=== PATIENT | male | born 1960 | race Caucasian/White ===

== ENCOUNTER 2017-12-17 13:57 | Emergency (ER) | payer OTHER, SELFPAY ==
[2017-12-17 14:14] VITALS: BP 155/100; PULSE 73; RESP 18; TEMP 36.8; O2SAT 97; BMI 28.7
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
[2017-12-17] MEDS: TET,DIPH,PERTUSS(ACELL),VAC/PF 0.5 ML SYRINGE IM (15:36)
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
[2017-12-17] MEDS: HYDROCODONE/ACET 5/325 TABLET 2 TAB PO (15:51)
--- NOTE | 2017-12-17 16:04 | PC.NURSE ---
Large telfa, bacitracin and kerlix to bilateral arms
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
[2017-12-17 16:32] VITALS: BP 184/80; PULSE 71; RESP 20; O2SAT 99
== END 2017-12-17 16:33 | disposition home or self-care (01) ==
PROVIDERS: Emergency Provider Emergency Medicine
DX: T22.10XA Burn of first degree of shoulder and upper limb, except wrist and hand, unspecified site, initial encounter (principal); T20.10XA Burn of first degree of head, face, and neck, unspecified site, initial encounter; X11.8XXA Contact with other hot tap-water, initial encounter; Y99.0 Civilian activity done for income or pay
CPT/HCPCS: 16020; 90471; 99283; 90715

== ENCOUNTER → 2017-12-20 10:23 | Outpatient (CLI) | payer OTHER, SELFPAY | PROVIDERS: Visit Provider Family Medicine | DX: T22.212A Burn of second degree of left forearm, initial encounter (principal) | CPT/HCPCS: 16020; 99204; 99212 ==

== ENCOUNTER → 2017-12-23 13:47 | Outpatient (CLI) | payer OTHER, SELFPAY | PROVIDERS: Visit Provider Family Medicine | DX: T22.212A Burn of second degree of left forearm, initial encounter (principal) | CPT/HCPCS: 16020 ==

== ENCOUNTER → 2017-12-27 11:13 | Outpatient (CLI) | payer OTHER, SELFPAY | PROVIDERS: Visit Provider Family Medicine | DX: T22.212A Burn of second degree of left forearm, initial encounter (principal) | CPT/HCPCS: 16020 ==

== ENCOUNTER → 2018-01-05 08:38 | Outpatient (CLI) | payer OTHER, SELFPAY | PROVIDERS: Visit Provider Family Medicine | DX: T22.212A Burn of second degree of left forearm, initial encounter (principal) | CPT/HCPCS: 99212 ==

== ENCOUNTER 2022-03-26 08:41 | Emergency (ER) | payer OTHER, SELFPAY ==
[2022-03-26] VITALS (47 sets, daily range): BP systolic 151–241; BP diastolic 63–113; PULSE 58–96; RESP 10–28; TEMP 36.8; O2SAT 97–100; BMI 29.0
--- NOTE | 2022-03-26 08:51 | DI.CT.S_ITS ---
PROCEDURE: CT ANGIO HEAD AND NECK INDICATIONS: dizzy HTN TECHNIQUE: Pre-contrast 4.5 mm thick sections acquired from the foramen magnum to the vertex. After the administration of intravenous contrast, 1 mm thick sections acquired from the aortic arch through the [place]. Post-contrast 4.5 mm thick sections then re-acquired from the foramen magnum to the vertex. 3-dimensional [id number] (MIP) and/or volume rendering reformats were acquired of the central intracranial vasculature and neck separately. For radiation dose reduction, the following was used: automated exposure control, adjustment of mA and/or kV according to patient size. COMPARISON: None. FINDINGS: Image quality: Excellent. BRAIN: CSF spaces: Ventricles are normal in size and shape. Basal cisterns are patent. No extra-axial fluid collections. Brain: No midline shift. No intracranial bleeds or masses. Alvarado-white matter interface appears intact. No area of abnormal intracranial enhancement is seen. Skull and face: Calvarium and facial bones appear intact, without suspicious lesions. Orbits appear normal. Sinuses: Mucosal thickening in right maxillary sinus is seen. Bilateral mastoids are well aerated. HEAD CT ANGIOGRAPHY: Anterior circulation: Intracranial internal carotid arteries are normal in size and flow. The flow within the paired anterior cerebral arteries is normal and symmetric. The flow within the middle cerebral arteries is normal and symmetric. The anterior communicating artery is seen. No aneurysms are seen. Posterior circulation: Visualized portions of the vertebral arteries demonstrate normal caliber, and join to form a normal appearing basilar artery. Flow within the posterior cerebral arteries is normal and symmetric. No aneurysms are seen. NECK CT ANGIOGRAPHY: Carotid system: Atherosclerotic calcifications are seen throughout aortic arch with left proximal subclavian artery stent in place. The origins of the common carotid arteries appear patent. The common carotid arteries demonstrate normal caliber and courses. Moderate amount of atherosclerotic calcifications are noted involving bilateral carotid bulbs and origins of bilateral internal carotid arteries with less than 50 percent stenosis involving proximal right internal carotid artery and 60-70 percent stenosis involving proximal left internal carotid artery. No hemodynamically significant stenosis is seen in more distal bilateral internal carotid arteries. Posterior circulation: Right vertebral artery origin is patent. Greater than 50 percent stenosis involving origin of left vertebral artery is seen The more superior extracranial portions of both vertebral arteries also demonstrate normal courses and calibers. They join to form a normal appearing basilar artery. Soft tissues: Visualized neck soft tissues demonstrate no suspicious abnormalities. Bones: No suspicious bony lesions. Visualized cervical spine appears normally aligned. IMPRESSION: 1. No CT evidence of acute intracranial abnormalities. No area of abnormal enhancement. 2. Right maxillary sinusitis. 3. No hemodynamically significant stenosis or aneurysm is seen in intracranial circulation. 4. Significant atherosclerotic disease involving aortic arch. Left proximal subclavian artery stent in place. Moderate amount of atherosclerotic disease involving bilateral carotid bulbs and proximal bilateral internal carotid arteries causing less than 50 percent stenosis in proximal right internal carotid artery and 60-70 percent stenosis involving proximal left internal carotid artery. 5. Greater than 50 percent stenosis involving origin of left vertebral artery. More distal bilateral vertebral arteries show no hemodynamically significant stenosis. Any quantitative measurements of stenosis were performed using NASCET criteria. Dictated by: Obed Mcleod M.D. on 03/26/2022 at 9:34 Approved by: Obed Mcleod M.D. on 03/26/2022 at 9:44
[2022-03-26 09:01] LABS: Add Manual Diff / Slide Review NO; Basophils Absolute Auto 0 /uL (0-100); Basophils Percent Auto 0.7 % (0-2); Eosinophils Absolute Auto 0 /uL (0-450); Eosinophils Percent Auto 0.9 % (2-4); Hematocrit 44.5 % (41-53); Hemoglobin 15.6 g/dL (13.5-17.5); Lymphocytes Absolute Auto 2000 /uL (1100-4500); Lymphocytes Percent Auto 35.8 % (25-40); Mean Corpuscular HGB Conc 35.1 % (30-36); Mean Corpuscular Hemoglobin 34.9 PG (26-34); Mean Corpuscular Volume 99.2 fL (80-100); Monocytes Absolute Auto 500 /uL (0-900); Monocytes Percent Auto 9.1 % (3-14); Neutrophils Absolute Auto 2900 /uL (1500-7000); Neutrophils Percent Auto 53.5 % (50-75); Platelet Count 161 X10^3/uL (150-400); Red Blood Cell Count 4.49 X10^6/uL (4.5-5.9); Red Cell Distribution Width 13.2 % (11.6-14.8); White Blood Cell Count 5.5 X10^3/uL (4.5-11.0)
--- NOTE | 2022-03-26 09:07 | ED_ITS ---
HPI - Dizziness General Chief Complaint: Hypertension Stated Complaint: thinks he's having a stoke Time Seen by Provider: 03/26/22 08:50 Source: patient Mode of arrival: Ambulatory History of Present Illness HPI Narrative: Patient is a 61-year-old male history of hypertension peripheral vascular disease with stent in the left arm, tobacco abuse and alcohol abuse presenting today with ongoing dizziness. He reports dizziness off and on for up to 2 years however slightly worse today. Difficult to say what makes it better or worse. It does not seem to be positional. He feels like he is in a fish bowl. He is no numbness tingling or weakness no severe headache no nausea vomiting he is ambulatory. 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 He has been taking aspirin and high cholesterol medication however not taking anything for his blood pressure. He is noted to be extremely hypertensive here in the ED. he denies any fever chills or abdominal pain. Related Data Previous Rx's Medication Instructions Recorded hydrocodone 5 mg-acetaminophen 325 1 tab PO Q4-6H PRN pain #14 tabs 12/17/17 mg tablet atorvastatin 80 mg tablet 80 mg PO BEDTIME #30 tabs 03/26/22 hydrochlorothiazide 25 mg tablet 25 mg PO DAILY #30 tabs 03/26/22 Allergies Allergy/AdvReac Type Severity Reaction Status Date / Time No Known Drug Allergies Allergy Verified 12/17/17 15:23 Review of Systems Review of Systems ROS Unobtainable: All systems reviewed & are unremarkable except as noted in HPI and below Patient History Social History Smoking Status: Current every day smoker Smoking Status: Current every day smoker alcohol intake frequency: 0-2 drinks per day Substance Use Type: does not use Exam Initial Vital Signs Initial Vital Signs: Vital Signs Temperature 98.3 F 03/26/22 08:45 Pulse Rate 95 H 03/26/22 08:45 Respiratory Rate 18 03/26/22 08:45 Blood Pressure 241/113 H 03/26/22 08:45 Pulse Oximetry 99 03/26/22 08:45 Oxygen Delivery Method 03/26/22 08:45 GENERAL: Alert 61-year-old male HEENT: Head atraumatic,EOMI, pupils reactive, face symmetric, moist mucous membranes CARDIOVASCULAR: Regular rate and rhythm without murmurs, rubs or gallops. RESPIRATORY: Breath sounds equal bilaterally, no wheezes rales or rhonchi. ABDOMEN: Soft, nontender. Normoactive bowel sounds all 4 quadrants. No guarding or rebound. EXTREMITIES: Normal range of motion, no clubbing or edema. Neurovascularly intact NEUROLOGICAL: Alert and oriented x4.Normal gait and speech. Cranial nerves II through XII grossly intact. Good dpfgyp-lo-pdak, good rybo-ta-icqj, strength equal bilaterally, no dysarthria or aphasia, sensation in tact to soft touch bilaterally, no visual changes, no facial droop SKIN: Warm, dry, no laceration, no petechiae, no rashes or lesions. Scores NIH Stroke Scale Level of Conciousness: Alert, keenly responsive Ask month/age: Answers both questions correctly. Open/close eyes, close hand: Performs both tasks correctly Best gaze horizontal: Normal Visual call: No visual loss Facial palsy: Normal symetrical movement Left arm drift: No drift for full 10 sec Right arm drift: No drift for full 10 sec Left leg drift: No drift for full 5 sec Right leg drift: No drift for full 5 sec Limb ataxia: Absent Sensory on face/arms/legs: Normal, no sensory loss Best language: No aphasia, normal Dysarthria: Normal Extinction or inattention: No abnormality Total NIH Stroke scale score: 0 Course Orders Ordered: ED Orders 03/26/22 11:11 MR head/brain wo con Stat 03/26/22 19:17 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 Vital Signs Vital signs: Vital Signs - 8 hr 03/26/22 11:45 03/26/22 11:45 03/26/22 12:00 Pulse Rate 59 L Respiratory Rate 21 Blood Pressure 164/72 H 157/71 H Pulse Oximetry 100 03/26/22 12:00 03/26/22 12:15 03/26/22 12:15 Pulse Rate 58 L 58 L Respiratory Rate 21 18 Blood Pressure 151/67 H Pulse Oximetry 100 100 03/26/22 12:30 03/26/22 12:31 03/26/22 12:31 Pulse Rate 59 L 59 L Respiratory Rate 21 20 Blood Pressure 170/74 H Pulse Oximetry 99 100 03/26/22 12:45 03/26/22 12:45 03/26/22 13:00 Pulse Rate 59 L Respiratory Rate 25 H Blood Pressure 161/73 H 162/72 H Pulse Oximetry 99 03/26/22 13:00 03/26/22 13:15 03/26/22 13:15 Pulse Rate 61 60 Respiratory Rate 20 21 Blood Pressure 155/64 H Pulse Oximetry 98 99 03/26/22 13:30 03/26/22 13:31 03/26/22 13:31 Pulse Rate 60 64 Respiratory Rate 10 L 21 Blood Pressure 162/71 H Pulse Oximetry 99 98 03/26/22 13:45 03/26/22 13:45 03/26/22 14:00 Pulse Rate 64 Respiratory Rate 20 Blood Pressure 168/72 H 185/77 H Pulse Oximetry 99 03/26/22 14:00 03/26/22 14:38 03/26/22 14:45 Pulse Rate 61 80 65 Respiratory Rate 13 15 Blood Pressure Pulse Oximetry 98 99 98 03/26/22 15:01 03/26/22 15:01 03/26/22 15:15 Pulse Rate 72 Respiratory Rate 21 Blood Pressure 192/88 H 173/77 H Pulse Oximetry 98 03/26/22 15:15 03/26/22 15:30 03/26/22 15:30 Pulse Rate 69 70 Respiratory Rate 28 H 22 Blood Pressure 168/79 H Pulse Oximetry 98 100 03/26/22 15:45 03/26/22 15:45 03/26/22 16:00 Pulse Rate 61 Respiratory Rate Blood Pressure 173/81 H 184/85 H Pulse Oximetry 99 03/26/22 16:00 03/26/22 16:15 03/26/22 16:15 Pulse Rate 62 96 H Respiratory Rate Blood Pressure 207/113 H Pulse Oximetry 99 03/26/22 16:30 03/26/22 16:30 03/26/22 16:45 Pulse Rate 64 Respiratory Rate 20 Blood Pressure 181/86 H 159/84 H Pulse Oximetry 03/26/22 16:45 03/26/22 17:00 03/26/22 17:00 Pulse Rate 66 65 Respiratory Rate 17 18 Blood Pressure 153/69 H Pulse Oximetry 03/26/22 17:15 03/26/22 17:15 03/26/22 17:30 Pulse Rate 82 Respiratory Rate 11 L Blood Pressure 156/72 H 151/74 H Pulse Oximetry 03/26/22 17:30 03/26/22 17:45 03/26/22 17:45 Pulse Rate 74 75 Respiratory Rate 22 17 Blood Pressure 153/63 H Pulse Oximetry 03/26/22 18:00 03/26/22 18:00 03/26/22 18:15 Pulse Rate 73 Respiratory Rate 27 H Blood Pressure 157/69 H 151/69 H Pulse Oximetry 03/26/22 18:15 03/26/22 19:00 03/26/22 19:15 Pulse Rate 78 73 77 Respiratory Rate 21 24 Blood Pressure Pulse Oximetry MDM - Dizziness Lab Data 03/26/22 08:49 03/26/22 08:49 Labs: Lab Results 03/26/22 03/26/22 03/26/22 Range/Units 08:49 08:49 08:49 WBC 5.5 (4.5-11.0) X10^3/uL RBC 4.49 L (4.5-5.9) X10^6/uL Hgb 15.6 (13.5-17.5) g/dL Hct 44.5 (41-53) % MCV 99.2 (80-100) fL MCH 34.9 H (26-34) PG MCHC 35.1 (30-36) % RDW 13.2 (11.6-14.8) % Plt Count 161 (150-400) X10^3/uL Neut % (Auto) 53.5 (50-75) % Lymph % (Auto) 35.8 (25-40) % [place] % (Auto) 9.1 (3-14) % Eos % (Auto) 0.9 L (2-4) % Baso % (Auto) 0.7 (0-2) % Neut # (Auto) 2900 (7538-4332) /uL Lymph # (Auto) 2000 (9934-4611) /uL [place] # (Auto) 500 (0-900) /uL Eos # (Auto) 0 (0-450) /uL Baso # (Auto) 0 (0-100) /uL PT 11.3 (10.1-12.7) SECONDS INR 1.0 (0.9-1.3) APTT 28 (26-36) SECONDS Sodium 131 L (137-145) mmol/L Potassium 5.6 H (3.4-5.1) mmol/L Chloride 95 L (98-107) mmol/L Carbon Dioxide 23 (22-32) mmol/L BUN 14 (9-20) mg/dL Creatinine 0.59 L (0.66-1.25) mg/dL Estimated GFR > 60 (>60) mL/min BUN/Creatinine Ratio 23.7 H (6-22) Glucose 296 H (80-110) mg/dL Hemoglobin A1c (4.0-6.0) % Calcium 9.4 (8.4-10.2) mg/dL Total Bilirubin 1.5 H (0.2-1.3) mg/dL AST 53 (17-59) IU/L ALT 30 (<50) IU/L Alkaline Phosphatase 81 (38-126) U/L Total Creatine Kinase 129 (55-170) U/L CK-MB (CK-2) 2.01 (<2.37) ng/mL CK-MB (CK-2) Rel Index 1.6 (1.5-5.0) % Troponin I 0.013 (0.01-0.034) ng/mL Total Protein 9.3 H (6.3-8.2) g/dL Albumin 5.0 (3.5-5.0) g/dL Globulin 4.3 H (1.7-4.1) g/dL Albumin/Globulin Ratio 1.2 (1.0-2.8) Urine Color Urine Appearance Urine pH (4.5-8.0) Ur Specific [place] (1.000-1.035) Urine Protein (Negative) Urine Glucose (UA) (Negative) g/dL Urine Ketones (NEGATIVE) Urine Occult Blood (Negative) Urine Nitrate (Negative) Urine Bilirubin (NEGATIVE) Urine Urobilinogen (0.2) E.U./dL Ur Leukocyte Esterase (NEGATIVE) Urine RBC (0-5/HPF) Urine WBC (0-5/HPF) Urine Bacteria (None) Ur Culture Indicated? Micro UA Comment U Opiates 300ng/mL cut (Negative) Ur Oxycodone Screen (Negative) Urine Methadone Screen (Negative) Ur Barbiturates Screen (Negative) U Tricyclic Antidepress (Negative) Ur Phencyclidine Scrn (Negative) Ur Amphetamines Screen (Negative) U Methamphetamines Scrn (Negative) Ur MDMA Scrn (Ecstasy) (Negative) U Benzodiazepines Scrn (Negative) Urine Cocaine Screen (Negative) U Marijuana (THC) Screen (Negative) Ethyl Alcohol < 10 ( - 10) mg/dL SARS-CoV-2 (PCR) (Negative) 03/26/22 03/26/22 03/26/22 Range/Units 08:49 08:58 09:14 WBC (4.5-11.0) X10^3/uL RBC (4.5-5.9) X10^6/uL Hgb (13.5-17.5) g/dL Hct (41-53) % MCV (80-100) fL MCH (26-34) PG MCHC (30-36) % RDW (11.6-14.8) % Plt Count (150-400) X10^3/uL Neut % (Auto) (50-75) % Lymph % (Auto) (25-40) % [place] % (Auto) (3-14) % Eos % (Auto) (2-4) % Baso % (Auto) (0-2) % Neut # (Auto) (3295-5573) /uL Lymph # (Auto) (7950-8410) /uL [place] # (Auto) (0-900) /uL Eos # (Auto) (0-450) /uL Baso # (Auto) (0-100) /uL PT (10.1-12.7) SECONDS INR (0.9-1.3) APTT (26-36) SECONDS Sodium (137-145) mmol/L Potassium (3.4-5.1) mmol/L Chloride (98-107) mmol/L Carbon Dioxide (22-32) mmol/L BUN (9-20) mg/dL Creatinine (0.66-1.25) mg/dL Estimated GFR (>60) mL/min BUN/Creatinine Ratio (6-22) Glucose (80-110) mg/dL Hemoglobin A1c 11.0 H (4.0-6.0) % Calcium (8.4-10.2) mg/dL Total Bilirubin (0.2-1.3) mg/dL AST (17-59) IU/L ALT (<50) IU/L Alkaline Phosphatase (38-126) U/L Total Creatine Kinase (55-170) U/L CK-MB (CK-2) (<2.37) ng/mL CK-MB (CK-2) Rel Index (1.5-5.0) % Troponin I (0.01-0.034) ng/mL Total Protein (6.3-8.2) g/dL Albumin (3.5-5.0) g/dL Globulin (1.7-4.1) g/dL Albumin/Globulin Ratio (1.0-2.8) Urine Color Urine Appearance Urine pH (4.5-8.0) Ur Specific [place] (1.000-1.035) Urine Protein (Negative) Urine Glucose (UA) (Negative) g/dL Urine Ketones (NEGATIVE) Urine Occult Blood (Negative) Urine Nitrate (Negative) Urine Bilirubin (NEGATIVE) Urine Urobilinogen (0.2) E.U./dL Ur Leukocyte Esterase (NEGATIVE) Urine RBC (0-5/HPF) Urine WBC (0-5/HPF) Urine Bacteria (None) Ur Culture Indicated? Micro UA Comment U Opiates 300ng/mL cut Negative (Negative) Ur Oxycodone Screen Negative (Negative) Urine Methadone Screen Negative (Negative) Ur Barbiturates Screen Negative (Negative) U Tricyclic Antidepress Negative (Negative) Ur Phencyclidine Scrn Negative (Negative) Ur Amphetamines Screen Negative (Negative) U Methamphetamines Scrn Negative (Negative) Ur MDMA Scrn (Ecstasy) Negative (Negative) U Benzodiazepines Scrn Negative (Negative) Urine Cocaine Screen Negative (Negative) U Marijuana (THC) Screen Negative (Negative) Ethyl Alcohol ( - 10) mg/dL SARS-CoV-2 (PCR) Negative (Negative) 03/26/22 03/26/22 Range/Units 09:14 10:05 WBC (4.5-11.0) X10^3/uL RBC (4.5-5.9) X10^6/uL Hgb (13.5-17.5) g/dL Hct (41-53) % MCV (80-100) fL MCH (26-34) PG MCHC (30-36) % RDW (11.6-14.8) % Plt Count (150-400) X10^3/uL Neut % (Auto) (50-75) % Lymph % (Auto) (25-40) % [place] % (Auto) (3-14) % Eos % (Auto) (2-4) % Baso % (Auto) (0-2) % Neut # (Auto) (0908-9626) /uL Lymph # (Auto) (8259-8708) /uL [place] # (Auto) (0-900) /uL Eos # (Auto) (0-450) /uL Baso # (Auto) (0-100) /uL PT (10.1-12.7) SECONDS INR (0.9-1.3) APTT (26-36) SECONDS Sodium (137-145) mmol/L Potassium 4.6 (3.4-5.1) mmol/L Chloride (98-107) mmol/L Carbon Dioxide (22-32) mmol/L BUN (9-20) mg/dL Creatinine (0.66-1.25) mg/dL Estimated GFR (>60) mL/min BUN/Creatinine Ratio (6-22) Glucose (80-110) mg/dL Hemoglobin A1c (4.0-6.0) % Calcium (8.4-10.2) mg/dL Total Bilirubin (0.2-1.3) mg/dL AST (17-59) IU/L ALT (<50) IU/L Alkaline Phosphatase (38-126) U/L Total Creatine Kinase (55-170) U/L CK-MB (CK-2) (<2.37) ng/mL CK-MB (CK-2) Rel Index (1.5-5.0) % Troponin I (0.01-0.034) ng/mL Total Protein (6.3-8.2) g/dL Albumin (3.5-5.0) g/dL Globulin (1.7-4.1) g/dL Albumin/Globulin Ratio (1.0-2.8) Urine Color Yellow Urine Appearance Clear Urine pH 5.0 (4.5-8.0) Ur Specific [place] <=1.005 (1.000-1.035) Urine Protein Negative (Negative) Urine Glucose (UA) 3+ H (Negative) g/dL Urine Ketones Negative (NEGATIVE) Urine Occult Blood Negative (Negative) Urine Nitrate Negative (Negative) Urine Bilirubin Negative (NEGATIVE) Urine Urobilinogen 0.2 (0.2) E.U./dL Ur Leukocyte Esterase Negative (NEGATIVE) Urine RBC None seen (0-5/HPF) Urine WBC None seen (0-5/HPF) Urine Bacteria None seen (None) Ur Culture Indicated? Cult not indicated Micro UA Comment Microscopic normal U Opiates 300ng/mL cut (Negative) Ur Oxycodone Screen (Negative) Urine Methadone Screen (Negative) Ur Barbiturates Screen (Negative) U Tricyclic Antidepress (Negative) Ur Phencyclidine Scrn (Negative) Ur Amphetamines Screen (Negative) U Methamphetamines Scrn (Negative) Ur MDMA Scrn (Ecstasy) (Negative) U Benzodiazepines Scrn (Negative) Urine Cocaine Screen (Negative) U Marijuana (THC) Screen (Negative) Ethyl Alcohol ( - 10) mg/dL SARS-CoV-2 (PCR) (Negative) Point of Care Testing Glucose POC 247 Urine Dip Bedside Urine Glucose 1000 mg/dl Bedside Urine Bilirubin - Negative Bedside Urine Ketone - Negative Urine Specific [place] 1.005 Bedside Urine Occult Blood - Negative Bedside Urine pH 6.0 Bedside Urine Protein - Negative Bedside Urine Urobilinogen - Negative Bedside Urine Nitrite - Negative Bedside Urine Leukocytes - Negative Esterase Imaging Data CTA - brain/neck: Radiologist's Impression: ent: SingletonTommy MR#: [id number] : 1960 Acct:[id number] Age/Sex: 61 / M Date of Service: 03/26/22 Loc: ED Accession Number: [id number] ?? Procedure: CT angio head and neck Ordering Provider: Felicitas Contreras D.O. ADDENDUMThis report includes an Addendum and supersedes previous reports for this exam. ? ? ? PROCEDURE:? CT ANGIO HEAD AND NECK ? INDICATIONS:? dizzy HTN ? TECHNIQUE:? Pre-contrast 4.5 mm thick sections acquired from the foramen magnum to the vertex.? After the administration of intravenous contrast, 1 mm thick sections acquired from th e aortic arch through the [place].? Post-contrast 4.5 mm thick sections then re- acquired from the foramen magnum to the vertex.? 3-dimensional riwplke-wflxhjgcj-cfwgpcoljy (MIP) and/or volume rendering reformats were acquired of the central intracranial vasculature and neck separately. For radiation dose reduction, the following was used:? automated exposure control, adjustment of mA and/or kV according to patient size.? ? COMPARISON:? None. ? FINDINGS:? Image quality:? Excellent.? ? BRAIN:? CSF spaces:? Ventricles are normal in size and shape.? Basal cisterns are patent.? No extra-axial fluid collections.? ? Brain:? No midline shift.? No intracranial bleeds or masses.? Alvarado-white matter interface appears intact.? No area of abnormal intracranial enhancement is seen. ? Skull and face:? Calvarium and facial bones appear intact, without suspicious lesions.? Orbits appear normal.? ? Sinuses:? Mucosal thickening in right maxillary sinus is seen.? Bilateral ma stoids are well aerated. ? HEAD CT ANGIOGRAPHY:? Anterior circulation:? Intracranial internal carotid arteries are normal in size and flow.? The flow within the paired anterior cerebral arteries is normal and symmetric.? The flow within the middle cerebral arteries is normal and symmetric.? The anterior communicating artery is seen.? No aneurysms are seen.? ? Posterior circulation:? Visualized portions of the vertebral arteries demonstrate normal caliber, and join to form a normal appearing basilar artery.? Flow within the posterior cerebral arteries is normal and symmetric.? No aneurysms are seen.? ? NECK CT ANGIOGRAPHY:? Carotid system:? Atherosclerotic calcifications are seen throughout aortic arch with left proximal subclavian artery stent in place.? The origins of the common carotid arteries appear patent.? The common carotid arteries demonstrate normal caliber and c ourses.? Moderate amount of atherosclerotic calcifications are noted involving bilateral carotid bulbs and origins of bilateral internal carotid arteries with less than 50 percent stenosis involving proximal right internal carotid artery and 60-70 percent stenosis involving proximal left internal carotid artery.? No hemodynamically significant stenosis is seen in more distal bilateral internal carotid arteries. ? Posterior circulation:? Right vertebral artery origin is patent.? Greater than 50 percent stenosis involving origin of left vertebral artery is seen The more superior extracranial portions of both vertebral arteries also demonstrate normal courses and calibers.? They join to form a normal appearing basilar artery.? ? Soft tissues:? Visualized neck soft tissues demonstrate no suspicious abnormalities.? ? Bones:? No suspicious bony lesions.? Visualized cervical spine appears normally aligned.? IMPRESSION:? 1. No CT evidence of acute intracranial abnormalities.? No area of abnormal enhancement. ? 2.? Right maxillary sinusitis. ? 3. No hemodynamically significant stenosis or aneurysm is seen in intracranial circulation. ? 4. Significant atherosclerotic disease involving aortic arch.? Left proximal subclavian artery stent in place.? Moderate amount of atherosclerotic disease involving bilateral carotid bulbs and proximal bilateral internal carotid arteries causing less than 50 percent stenosis in proximal right internal carotid artery and 60-70 percent stenosis involving proximal left internal carotid artery. ? 5. Greater than 50 percent stenosis involving origin of left vertebral artery.? More distal bilateral vertebral arteries show no hemodynamically significant stenosis.? ? Any quantitative measurements of stenosis were performed using NASCET criteria.? ? ? Dictated by: Obed Mcleod M.D. on 03/26/2022 at 9:34 ? ? Approved by: Obed Mcleod M.D. on 03/26/2022 at 9:44 ? ? ? ADDENDUM: ? There is nonvisualization of right vertebral artery from its origin with contrast opacified mid to distal right vertebral artery seen beginning at the level of C4 vertebral body suggestive of occluded proximal to mid right vertebral artery with more distal right vertebral artery supplied from the left side. ? Dictated by: Obed Mcleod M.D. on 03/26/2022 at 11:11 ? ? Approved by: Obed Mcleod M.D. on 03/26/2022 at 11:14 ? Addendum Dictated By: Obed Mcleod MD Addendum Signed By: Addendum Cosigned By: DD/ TD/TT: 03/26/22 PROCEDURE:? CT ANGIO HEAD AND NECK ? INDICATIONS:? dizzy HTN ? TECHNIQUE:? Pre-contrast 4.5 mm thick sections acquired from the foramen magnum to the vertex.? After the administration of intravenous contrast, 1 mm thick sections acquired from the aortic arch through the [place].? Post-contrast 4.5 mm thick sections then re- acquired from the foramen magnum to the vertex.? 3-dimensional maximum-intensity- projection (MIP) and/or volume rendering reformats were acquired of the central intracranial vasculature and neck separately. For radiation dose reduction, the following was used:? automated exposure control, adjustment of mA and/or kV according to patient size.? ? COMPARISON:? None. ? FINDINGS:? Image quality:? Excellent.? ? BRAIN:? CSF spaces:? Ventricles are normal in size and shape.? Basal cisterns are patent.? No extra-axial fluid collections.? ? Brain:? No midline shift.? No intracranial bleeds or masses.? [place]var[place]-white matter interface appears intact.? No area of abnormal intracranial enhancement is seen. ? Skull and face:? Calvarium and facial bones appear intact, without suspicious lesions.? Orbits appear normal.? ? Sinuses:? Mucosal thickening in right maxillary sinus is seen.? Bilateral mastoids are well aerated. ? HEAD CT ANGIOGRAPHY:? Anterior circulation:? Intracranial internal carotid arteries are normal in size and flow.? The flow within the paired anterior cerebral arteries is normal and symmetric.? The flow within the middle cerebral arteries is normal and symmetric.? The anterior communicating artery is seen.? No aneurysms are seen.? ? Posterior circulation:? Visualized portions of the vertebral arteries demonstrate normal caliber, and join to form a normal appearing basilar artery.? Flow within the posterior cerebral arteries is normal and symmetric.? No aneurysms are seen.? ? NECK CT ANGIOGRAPHY:? Carotid system:? Atherosclerotic calcifications are seen throughout aortic arch with left proximal subclavian artery stent in place.? The origins of the common carotid arteries appear patent.? The common carotid arteries demonstrate normal caliber and courses.? Moderate amount of atherosclerotic calcifications are noted involving bilateral carotid bulbs and origins of bilateral internal carotid arteries with less than 50 percent stenosis involving proximal right internal carotid artery and 60-70 percent stenosis involving proximal left internal carotid artery.? No hemodynamically significant stenosis is seen in more distal bilateral internal carotid arteries. ? Posterior circulation:? Right vertebral artery origin is patent.? Greater than 50 percent stenosis involving origin of left vertebral artery is seen The more superior extracranial portions of both vertebral arteries also demonstrate normal courses and calibers.? They join to form a normal appearing basilar artery.? ? Soft tissues:? Visualized neck soft tissues demonstrate no suspicious ab normalities.? ? Bones:? No suspicious bony lesions.? Visualized cervical spine appears normally aligned.? IMPRESSION:? 1. No CT evidence of acute intracranial abnormalities.? No area of abnormal enhancement. ? 2.? Right maxillary sinusitis. ? 3. No hemodynamically significant stenosis or aneurysm is seen in intracranial circulation. ? 4. Significant atherosclerotic disease involving aortic arch.? Left proximal subclavian artery stent in place.? Moderate amount of atherosclerotic disease involving bilateral carotid bulbs and proximal bilateral internal carotid arteries causing less than 50 percent stenosis in proximal right internal carotid artery and 60-70 percent stenosis involving proximal left internal carotid artery. ? 5. Greater than 50 percent stenosis involving origin of left vertebral artery.? More distal bilateral vertebral arteries show no hemodynamically significant sten osis.? ? Any quantitative measurements of stenosis were performed using NASCET criteria.? ? ? Dictated by: Obed Mcleod M.D. on 03/26/2022 at 9:34 ? ? Approved by: Obed Mcleod M.D. on 03/26/2022 at 9:44 ? MR brain: Radiologist's Impression: atient: Tommy Singleton MR#: [id number] : 1960 Acct:[id number] Age/Sex: 61 / M Date of Service: 03/26/22 Loc: ED Accession Number: [id number] ?? Procedure: MR head/brain wo con Ordering Provider: Felicitas Contreras D.O. PROCEDURE:? MR HEAD/BRAIN WO CON ? INDICATIONS:? dizzy severe atherosclerotic disease ? TECHNIQUE:? Noncontrast axial T1 spin echo, axial T2 fast spin echo, sagittal and axial FLAIR, coronal T2 fast spin echo, axial gradient echo, axial diffusion and ADC through the brain.? ? COMPARISON:? [facility], CT, CT ANGIO HEAD AND NECK, 03/26/2022, 9:02. ? FINDINGS:? Image quality:? Excellent.? ? CSF Spaces:? Basal cisterns are patent.? No extra-axial fluid collections.? Ventricles are normal in size and shape.? ? Brain:? No intracranial masses or hemorrhage.? [place]/white matter interface is normal.? Brainstem appears normal.? Diffusion-weighted images demonstrate no acute ischemic insult.? No chronic ischemic insults.? Normal intravascular flow voids are present.? ? Skull and face:? Calvarium has normal marrow signal.? Orbits appear normal.? ? Sinuses:? Near complete opacification of the right maxillary sinus.? Mucosal thickening in the left maxillary sinus and ethmoidal sinuses bilaterally.? The? mastoids are clear.? ? ? IMPRESSION:? ? 1. No acute intracranial abnormalities. ? 2. Bilateral sinusitis. ? ? ? Dictated by: Tracey Estrada M.D. on 03/26/2022 at 19:16 ? ? Approved by: Tracey Estrada M.D. on 03/26/2022 at 19:1 ECG Data Interpretation: Normal sinus rhythm rate 79 CA interval 160 QRS 116 QTC 405 no priors to compare MDM Narrative Medical decision making narrative: Patient is 61-year-old male with history of peripheral vascular disease tobacco abuse alcohol abuse chronic dizziness presenting today with worsening dizziness and severe hypertension. CT angio showed vertebral artery thrombus and greater than 50% stenosis of the left vertebral artery. Both of these could be attributing to his chronic dizziness. He is an NIH stroke scale of 0. He is ambulatory in the ED. Blood pressure has actually improved without any intervention from me. He is found to be hyperglycemic with a hemoglobin A1c of 11 new onset diabetes. Patient has multiple risk factors including uncontrolled atherosclerosis, hypertension, diabetes. Stroke physician at Dr. Ortega was called in regards to stenosis and thrombus. This is unlikely acute secondary to chronic presentation. Recommends MRI due to multiple risk factors. If negative can be treated as an outpatient. Patient unable to get an MRI until 630 at night. Blood pressure decreased to 151/59. He does not have a primary care provider. Will start him on high dose atorvastatin 80 mg and hydrochlorothiazide. I also recommend aspirin 81 mg daily. He is given strict return precautions. I strongly advised him to stop smoking and drinking. Discharge Plan Departure Patient Disposition: Home Clinical Impression: Hypertension, Hyperlipidemia, Diabetes Instructions: DI for High Blood Pressure, DI for Diabetes Type 2 Activity Restrictions/Additional Instructions: *You have been diagnosed with high cholesterol high blood pressure new onset diabetes *What to do: If you want to live you must quit smoking. You must see a primary care provider your blood pressure cholesterol diabetes only take it under control. *Continue to take medications as directed--> SENT TO [facility] Aspirin 81 mg daily Hydrochlorothiazide 25 mg daily started in the morning Atorvastatin 80 mg at night *Follow up with your primary care provider in 2-3 days or call [phone] *Return to ER if you should have increasing dizziness numbness tingling weakness chest pain pain in extremities or any new, worsening or concerning symptoms Prescriptions: New hydrochlorothiazide 25 mg tablet 25 mg PO DAILY Qty: 30 0RF atorvastatin 80 mg tablet 80 mg PO BEDTIME Qty: 30 0RF No Action hydrocodone-acetaminophen 5-325 mg tablet 1 tab PO Q4-6H PRN (Reason: pain) Qty: 14 0RF Referrals: Miscellaneous,Doctor, MD [Primary Care Provider] - Stand Alone Forms: Patient Portal/API
[2022-03-26 09:09] LABS: Prothrombin Time 11.3 SECONDS (10.1-12.7)
[2022-03-26 09:12] LABS: PTT Partial Thromboplastin Tim 28 SECONDS (26-36)
[2022-03-26 09:15] LABS: Alanine Aminotransferase 30 IU/L (<50); Albumin Globulin Ratio 1.2 (1.0-2.8); Alkaline Phosphatase 81 U/L (38-126); Aspartate Aminotransferase 53 IU/L (17-59); BUN Creatinine Ratio 23.7 (6-22); Bilirubin Total 1.5 mg/dL (0.2-1.3); Blood Urea Nitrogen 14 mg/dL (9-20); Calcium 9.4 mg/dL (8.4-10.2); Carbon Dioxide 23 mmol/L (22-32); Chloride 95 mmol/L (98-107); Creatine Kinase 129 U/L (55-170); Estimated Glomerular Filt Rate > 60 mL/min (>60); Ethanol (ETOH) < 10 mg/dL; Globulin 4.3 g/dL (1.7-4.1); Glucose 296 mg/dL (80-110); Sodium 131 mmol/L (137-145); Total Protein 9.3 g/dL (6.3-8.2)
[2022-03-26 09:16] LABS: Potassium 5.6 mmol/L (3.4-5.1)
[2022-03-26 09:18] LABS: COVID19 -Nasal RAPID Negative (Negative)
[2022-03-26 09:21] LABS: Appearance Urine UA CLEAR; Bilirubin Urine UA NEGATIVE (NEGATIVE); Color Urine UA YELLOW; Glucose Urine UA 3+ g/dL (Negative); Ketones Urine UA NEGATIVE (NEGATIVE); Leukocyte Esterase Urine UA NEGATIVE (NEGATIVE); Nitrite Urine UA NEGATIVE (Negative); Occult Blood Urine UA NEGATIVE (Negative); Protein Urine UA NEGATIVE (Negative); Specific Gravity Urine UA <=1.005 (1.000-1.035); Urobilinogen Urine UA 0.2 E.U./dL (0.2)
[2022-03-26 09:25] LABS: Bacteria Urine None Seen; Culture Indicated Urine Cult Not Indicated; RBC Urine None Seen (0-5/HPF); Urine Comments Microscopic Normal; WBC Urine None Seen (0-5/HPF)
[2022-03-26 09:26] LABS: UR Morphine/Opiate cutoff 300 Negative (Negative); Ur Creatinine Normal (Normal); Ur Specific Gravity Normal (Normal); Urine Amphetamines Negative (Negative); Urine Barbiturates Negative (Negative); Urine Benzodiazepines Negative (Negative); Urine Cocaine Negative (Negative); Urine MDMA Negative (Negative); Urine Methadone Negative (Negative); Urine Methamphetamines Negative (Negative); Urine Oxycodone Negative (Negative); Urine Phencyclidine Negative (Negative); Urine Tetrahydrocannabinol Negative (Negative); Urine Tricyclic Antidepressant Negative (Negative); Urine pH Normal (Normal)
[2022-03-26 09:26] LABS: Troponin I 0.013 ng/mL (0.01-0.034)
[2022-03-26 09:30] LABS: CKMB % Relative Index 1.6 % (1.5-5.0); Creatine Kinase MB 2.01 ng/mL (<2.37)
[2022-03-26 09:50] LABS: HEMOLYSIS 208 (0-50)
[2022-03-26 10:25] LABS: HEMOLYSIS < 15 (0-50); Potassium 4.6 mmol/L (3.4-5.1)
--- NOTE | 2022-03-26 11:11 | DI.MRI.S_ITS ---
PROCEDURE: MR HEAD/BRAIN WO CON INDICATIONS: dizzy severe atherosclerotic disease TECHNIQUE: Noncontrast axial T1 spin echo, axial T2 fast spin echo, sagittal and axial FLAIR, coronal T2 fast spin echo, axial gradient echo, axial diffusion and ADC through the brain. COMPARISON: [facility], CT, CT ANGIO HEAD AND NECK, 03/26/2022, 9:02. FINDINGS: Image quality: Excellent. CSF Spaces: Basal cisterns are patent. No extra-axial fluid collections. Ventricles are normal in size and shape. Brain: No intracranial masses or hemorrhage. Alvarado/white matter interface is normal. Brainstem appears normal. Diffusion-weighted images demonstrate no acute ischemic insult. No chronic ischemic insults. Normal intravascular flow voids are present. Skull and face: Calvarium has normal marrow signal. Orbits appear normal. Sinuses: Near complete opacification of the right maxillary sinus. Mucosal thickening in the left maxillary sinus and ethmoidal sinuses bilaterally. The mastoids are clear. IMPRESSION: 1. No acute intracranial abnormalities. 2. Bilateral sinusitis. Dictated by: Tracey Estrada M.D. on 03/26/2022 at 19:16 Approved by: Tracey Estrada M.D. on 03/26/2022 at 19:19
== END 2022-03-26 20:07 | disposition home or self-care (01) ==
PROVIDERS: Emergency Provider Emergency Medicine
DX: I10 Essential (primary) hypertension (principal); E78.5 Hyperlipidemia, unspecified; R42 Dizziness and giddiness; E11.9 Type 2 diabetes mellitus without complications; Z20.822 Contact with and (suspected) exposure to COVID-19
CPT/HCPCS: 36415; 70496; 70498; 70551; 80053; 80305; 80320; 81001; 81003; 82550; 82553; 82962; 83036; 84132; 84484; 85025; 85610; 85730; 87635; 93005; 93010; 99284; 99285; C9803

== ENCOUNTER → 2022-09-27 10:36 | Outpatient (CLI) | payer OTHER, SELFPAY ==
[2022-09-27 12:09] LABS: Appearance Urine UA CLEAR; Bilirubin Urine UA NEGATIVE (NEGATIVE); Color Urine UA YELLOW; Glucose Urine UA NEGATIVE (Negative); Ketones Urine UA NEGATIVE (NEGATIVE); Leukocyte Esterase Urine UA NEGATIVE (NEGATIVE); Nitrite Urine UA NEGATIVE (Negative); Occult Blood Urine UA NEGATIVE (Negative); Protein Urine UA NEGATIVE (Negative); Specific Gravity Urine UA <=1.005 (1.000-1.035); Urobilinogen Urine UA 0.2 E.U./dL (0.2)
[2022-09-27 12:17] LABS: Bacteria Urine None Seen; Culture Indicated Urine Cult Not Indicated; RBC Urine None Seen (0-5/HPF); Squamous Epithelial Cell Urine None Seen (0-5/HPF); WBC Urine None Seen (0-5/HPF)
[2022-09-27 12:29] LABS: BUN Creatinine Ratio 21.8 (6-22); Blood Urea Nitrogen 19 mg/dL (9-20); Calcium 9.4 mg/dL (8.4-10.2); Carbon Dioxide 23 mmol/L (22-32); Chloride 97 mmol/L (98-107); Cholesterol 118 mg/dL (140-199); Estimated Glomerular Filt Rate > 60 mL/min (>60); Glucose 89 mg/dL (80-110); HDL Cholesterol 43 mg/dL (40-60); HEMOLYSIS < 15 (0-50); LDL Cholesterol Calculated 65 mg/dL (<100); Potassium 4.4 mmol/L (3.4-5.1); Sodium 130 mmol/L (137-145); Triglycerides 48 mg/dL (35-150)
[2022-09-27 12:49] LABS: Creatinine Urine Random 26.5 mg/dL
[2022-09-27 12:56] LABS: Microalbumin Urine Random < 0.6 mg/dL (0-1.6)
[2022-09-27 13:02] LABS: Prostate Specific Antigen 1.14 ng/mL (0.10-4.00)
[2022-09-27 15:15] LABS: Hep C Virus Ab w/Reflex Quant NEGATIVE s/c (NEGATIVE)
== END ==
PROVIDERS: PCP Family Medicine; Referring Provider Family Medicine; Visit Provider Family Medicine
DX: E11.65 Type 2 diabetes mellitus with hyperglycemia (principal); E78.49 Other hyperlipidemia; I10 Essential (primary) hypertension; Z11.59 Encounter for screening for other viral diseases; Z12.5 Encounter for screening for malignant neoplasm of prostate; N40.0 Benign prostatic hyperplasia without lower urinary tract symptoms
CPT/HCPCS: 36415; 80048; 80061; 81001; 82043; 82570; 84153; 86803

== ENCOUNTER → 2023-12-05 11:25 | Outpatient (CLI) | payer OTHER, SELFPAY ==
[2023-12-05 12:59] LABS: Add Manual Diff / Slide Review NO; Basophils Absolute Auto 100 /uL (0-100); Basophils Percent Auto 0.7 % (0-2); Eosinophils Absolute Auto 100 /uL (0-450); Eosinophils Percent Auto 1.8 % (2-4); Hematocrit 34.7 % (41-53); Hemoglobin 12.4 g/dL (13.5-17.5); Lymphocytes Absolute Auto 1900 /uL (1100-4500); Lymphocytes Percent Auto 24.1 % (25-40); Mean Corpuscular HGB Conc 35.7 % (30-36); Mean Corpuscular Hemoglobin 32.9 PG (26-34); Mean Corpuscular Volume 92.4 fL (80-100); Monocytes Absolute Auto 700 /uL (0-900); Neutrophils Absolute Auto 5000 /uL (1500-7000); Neutrophils Percent Auto 64.4 % (50-75); Platelet Count 214 X10^3/uL (150-400); Red Blood Cell Count 3.76 X10^6/uL (4.5-5.9); Red Cell Distribution Width 14.4 % (11.6-14.8); White Blood Cell Count 7.7 X10^3/uL (4.5-11.0)
[2023-12-05 13:06] LABS: Hemoglobin A1C% w Est Avg Glu 6.4 % (4.0-6.0)
[2023-12-05 13:24] LABS: Alanine Aminotransferase 33 IU/L (<50); Albumin 4.5 g/dL (3.5-5.0); Albumin Globulin Ratio 1.6 (1.0-2.8); Alkaline Phosphatase 68 U/L (38-126); Aspartate Aminotransferase 30 IU/L (17-59); BUN Creatinine Ratio 20.9 (6-22); Bilirubin Total 0.5 mg/dL (0.2-1.3); Blood Urea Nitrogen 23 mg/dL (9-20); Calcium 9.3 mg/dL (8.4-10.2); Carbon Dioxide 23 mmol/L (22-32); Chloride 95 mmol/L (98-107); Cholesterol 103 mg/dL (140-199); Estimated Glomerular Filt Rate > 60 mL/min (>60); Globulin 2.9 g/dL (1.7-4.1); Glucose 105 mg/dL (80-110); HDL Cholesterol 36 mg/dL (40-60); HEMOLYSIS < 15 (0-50); LDL Cholesterol Calculated 49 mg/dL (<100); Potassium 4.4 mmol/L (3.4-5.1); Sodium 126 mmol/L (137-145); Total Protein 7.4 g/dL (6.3-8.2); Triglycerides 91 mg/dL (35-150)
== END ==
PROVIDERS: PCP Family Medicine; Referring Provider Family Medicine; Visit Provider Family Medicine
DX: I10 Essential (primary) hypertension (principal); I73.9 Peripheral vascular disease, unspecified; E11.65 Type 2 diabetes mellitus with hyperglycemia; F17.210 Nicotine dependence, cigarettes, uncomplicated; R42 Dizziness and giddiness
CPT/HCPCS: 36415; 80053; 80061; 83036; 85025

== ENCOUNTER → 2023-12-08 12:41 | Outpatient (CLI) | payer OTHER, SELFPAY ==
[2023-12-08 13:22] LABS: BUN Creatinine Ratio 19.4 (6-22); Blood Urea Nitrogen 18 mg/dL (9-20); Carbon Dioxide 24 mmol/L (22-32); Chloride 95 mmol/L (98-107); Estimated Glomerular Filt Rate > 60 mL/min (>60); Glucose 90 mg/dL (80-110); HEMOLYSIS < 15 (0-50); Potassium 4.3 mmol/L (3.4-5.1); Sodium 126 mmol/L (137-145)
== END ==
PROVIDERS: PCP Family Medicine; Referring Provider Family Medicine; Visit Provider Family Medicine
DX: E87.1 Hypo-osmolality and hyponatremia (principal); E11.65 Type 2 diabetes mellitus with hyperglycemia; I10 Essential (primary) hypertension; I73.9 Peripheral vascular disease, unspecified; R42 Dizziness and giddiness; F17.200 Nicotine dependence, unspecified, uncomplicated
CPT/HCPCS: 36415; 80048

== ENCOUNTER → 2023-12-10 12:45 | Outpatient (CLI) | payer OTHER, SELFPAY ==
--- NOTE | 2023-12-10 12:47 | DI.CT.S_ITS ---
PROCEDURE: CT LUNG LOW DOSE SCREENING INDICATIONS: tob dep. screening TECHNIQUE: Noncontrast 2.0-2.5 mm thick sections acquired from the pulmonary apices to the posterior costophrenic angles. 7 mm thick axial MIP, and 5 mm coronal and sagittal reformats were then acquired. For radiation dose reduction, the following was used: automated exposure control, adjustment of mA and/or kV according to patient size. COMPARISON: None. FINDINGS: Image quality: Diagnostic. Lower Neck: No enlarged lymph nodes. Thyroid: Normal CT appearance. Axillae: No enlarged lymph nodes. Chest Wall: No suspicious chest wall mass. Degenerative endplate osteophytes in the thoracic spine. Marked atrophy of the right pectoralis major and minor muscles. Heart: Heart size is normal. No pericardial effusion. Moderate coronary artery calcification. Thoracic Vessels: There is a vascular stent at the origin of the left subclavian artery. Thoracic aorta and pulmonary arteries are normal caliber. Mediastinum and [place]: No enlarged lymph nodes. Esophagus: Esophagus is normal caliber. Small hiatal hernia. Lungs and Pleura: Biapical subpleural emphysematous changes. Bilateral scattered peripheral ground-glass opacities. Occasional bilateral lower lobe bronchiectasis without bronchial wall thickening. No focal nodules or masses. No dense consolidations or pleural effusions. Upper Abdomen: Visualized upper abdomen solid organs and bowel loops appear normal. IMPRESSION: No suspicious pulmonary nodules. Bilateral scattered peripheral ground-glass opacities. Findings are nonspecific and can indicate acute or chronic infection or inflammation. Moderate coronary artery calcification and prior stenting of the left subclavian artery origin. LUNG-RADS 1; continued annual screening, if eligible. Clinically Significant Non-pulmonary Findings: Possible acute pulmonary infection/inflammation. Correlate with symptoms and exposure history. Dictated by: Alyssa Luna M.D. on 12/10/2023 at 21:35 Approved by: Alyssa Luna M.D. on 12/10/2023 at 21:45
== END ==
LOC: CT 12:46
PROVIDERS: PCP Family Medicine; Referring Provider Family Medicine; Visit Provider Family Medicine
DX: F17.210 Nicotine dependence, cigarettes, uncomplicated (principal); K44.9 Diaphragmatic hernia without obstruction or gangrene; I25.10 Atherosclerotic heart disease of native coronary artery without angina pectoris; I10 Essential (primary) hypertension; Z12.2 Encounter for screening for malignant neoplasm of respiratory organs; E11.65 Type 2 diabetes mellitus with hyperglycemia; I73.9 Peripheral vascular disease, unspecified
CPT/HCPCS: 71271